=== PATIENT | female | born 1945 | race Hispanic/Latino ===

== ENCOUNTER 2017-03-13 11:49 | Outpatient (CLI) | payer MEDICARE, OTHER, MEDICAID ==
--- NOTE | 2017-03-13 13:45 | RAD ---
CHEST TWO VIEWS: Comparison: 11-07-09 History: Bronchitis. FINDINGS: Normal cardiac silhouette. The pulmonary vessels and hilum are normal. Costophrenic angles are clear . Chronic changes. Stable costophrenic granuloma in the right midlung. No pneumothorax or osseous ab normality. IMPRESSION: No acute cardiopulmonary process. POS: [facility]
== END 2017-03-13 11:50 | disposition home or self-care (01) ==
LOC: RAD-FRANK 11:49
PROVIDERS: ATTEND Nurse Practitioner Family
DX: J40 Bronchitis, not specified as acute or chronic (principal)
CPT/HCPCS: 71020

== ENCOUNTER 2017-06-23 22:18 | Emergency (ER) | payer MEDICARE, OTHER ==
--- NOTE | 2017-06-23 23:26 | RAD ---
LEFT KNEE: 06/23/17 Four views. HISTORY: Left knee pain. Comparison made to left knee films from 09/08/15. Loss of medial joint space. Moderate spurring from the medial joint compartment with spurs seen from the medial femoral condyle and medial tibial condyle. There is fullness in the suprapatellar region s uggesting small effusion. IMPRESSION: Moderate degenerative changes, primarily involving the medial joint space. Suggestion of small joint effusion. POS: [facility]
== END 2017-06-24 00:15 | disposition home or self-care (01) ==
LOC: ERS 22:18
DX: M10.9 Gout, unspecified (principal); E78.5 Hyperlipidemia, unspecified; F17.210 Nicotine dependence, cigarettes, uncomplicated; Z79.899 Other long term (current) drug therapy
CPT/HCPCS: 96372

== ENCOUNTER 2018-03-01 10:20 | Outpatient (CLI) | payer MEDICARE, MEDICAID ==
--- NOTE | 2018-03-01 13:16 | RAD ---
TWO VIEWS OF THE CHEST: COMPARISON: 03/13/17. HISTORY: Cough. FINDINGS: Two views of the chest show normal sized cardiomediastinal silhouette. There is no evidence of consol idation, mass, or pleural effusion. The bones are unremarkable. IMPRESSION: No evidence of acute cardiopulmonary disease. POS: [facility]
== END 2018-03-01 10:21 | disposition home or self-care (01) ==
LOC: RAD-FRANK 10:20
PROVIDERS: ATTEND Nurse Practitioner Family
DX: R05 Cough (principal)
CPT/HCPCS: 71046

== ENCOUNTER 2018-05-07 09:07 | Outpatient (CLI) | payer MEDICARE, MEDICAID ==
--- NOTE | 2018-05-07 11:42 | MRI ---
BRAIN MRI WITH AND WITHOUT CONTRAST: Date: 05/07/18 INDICATION: Brain lesion. There are no prior imaging comparisons available. FINDINGS: The ventricular system is normal in size. There is no acute territorial infarction. An avidly enhanci ng mass is situated about the inferior aspect of the right frontal lobe within the anterior cranial f jose with surrounding vasogenic edema. Mass demonstrates axial dimensions of 2.4 x 2.4 cm and cranioc audal dimension of 2.1 cm. Minimal internal stippled, punctate susceptibility is suggested within the mass, in regions that contain punctate intrinsic T1 hyperintensity. There is a dural based component at its inferior margin which spans 1.2 cm AP diameter with a small dural tail suspected. This favors and extra-axial location. However, a component of motion does limit evaluation of surrounding brain parenchyma, which makes exact site of arisal difficult to confirm. No additional enhancing intra-axia l masses are seen. There is mild chronic ischemic disease. Skull base flow-voids are partially obscured by patient motio n. Pacchionian granulation is seen at the lateral aspect of the left transverse sinus. IMPRESSION: Enhancing mass with punctate susceptibility and intrinsic T1 hyperintensity favoring an extra-axial s ite of emanation from the floor of the right anterior cranial fossa, medially. There is surrounding v asogenic edema. Finding favors a meningioma. As a conservative measure, recommend a short-term follow -up in 4-6 months for continued evaluation. POS: [facility]
--- NOTE | 2018-05-07 11:59 | ULT ---
THYROID ULTRASOUND: HISTORY: Patient with thyroid nodule. TECHNIQUE: Multiple longitudinal and transverse images of the thyroid gland are obtained using a Multi-Hertz cur vilinear transducer. Real-time and color-flow images demonstrate the right thyroid lobe to measures 4.2 x 2.1 x 1.7 cm, while the left lobe measures 5.3 x 1.8 x 1.8 cm. Both thyroid lobes have areas o f heterogeneous density. There is a posterior mid pole right thyroid nodule, which measures 12 x 13 x 10 mm, with ill defined margins. A second left thyroid, more inferior lesion, is seen, measuring a pproximately 18 x 22 x 15 mm. The left thyroid lesion is more inferior. I do recommend a repeat thy roid ultrasound in four to six months, to confirm stability. Neither right or left thyroid lesions h ave ill defined margins or suspicious calcifications. IMPRESSION: Bilateral thyroid nodules noted. Both appear to be solid. Repeat thyroid sonogram in six months is recommended, POS: [facility]
--- NOTE | 2018-05-07 12:08 | CT ---
CONTRAST ENHANCED CT IMAGES OF THE CHEST: History: Trauma, fall, abdominal pain. FINDINGS: Contrast enhanced CT images of the chest obtained. IV contrast was given. Images demonstrates some heterogeneity seen in the thyroid isthmus. No evidence for hemothorax or pneumothorax seen. No evidence of lung parenchymal contusions seen. The mediastinum is unremarkable. Coronary artery calcifications seen. The visualized portions of the liver and spleen are unremarkable. Right adrenal mass again seen, unch anged since the previous comparison abdominal CT from 11-07-09. IMPRESSION: No evidence of osseous fractures or bony lesions seen. POS: [facility]
[2018-05-07] MEDS ORDERED: Gadobenate Dimeglumine 529 MG/1 ML (20ML VIAL) ONE (13:45)
== END 2018-05-07 09:08 | disposition home or self-care (01) ==
LOC: MRI 09:07
PROVIDERS: ATTEND Nurse Practitioner Family
DX: E04.1 Nontoxic single thyroid nodule (principal); R91.1 Solitary pulmonary nodule; G93.9 Disorder of brain, unspecified; E04.2 Nontoxic multinodular goiter
CPT/HCPCS: 70553; 71260; 76536; 82565; A9579

== ENCOUNTER 2019-01-23 20:49 | Emergency (ER) | payer MEDICARE, MEDICAID ==
[2019-01-23 22:29] LABS: Bacteria/HPF Rare-Few HPF (None Seen); Bilirubin Negative (Negative); Blood, Urine Trace (Negative); Clarity Clear (Clear); Glucose, Urine (Dipstick) Normal (Negative); Leukocyte Negative Leu/uL (Negative); Nitrite Negative (Negative); Protein, Urine (Dipstick) Negative (Neg-Trace); RBC/HPF 0-3 HPF (0-3); Squamous Epithelial 0-3 HPF (0-3); Urobilinogen Normal mg/dL (Less than 2); WBC/HPF 0-3 HPF (0-3)
[2019-01-23 22:52] LABS: #Basophils 0.1 thou/uL (0.0-0.2); #Eosinphils 0.2 thou/uL (0.0-0.7); #Lymphocytes 2.4 thou/uL (1.20-3.40); #Monocytes 0.6 thou/uL (0.11-0.59); #Neutrophils 6.7 thou/uL (1.40-6.50); %Basophils 0.8 % (0.0-1.0); %Eosinophils 2.1 % (0.0-10.0); %Lymphocytes 24.2 % (21.0-51.0); %Monocytes 6.1 % (0.0-10.0); %Neutrophils 66.8 % (42.0-75.0); Hemoglobin 13.1 g/dL (12.0-16.0); Mean Corpuscular HGB CONC 32.8 g/dL (32.0-36.0); Mean Corpuscular Hemoglobin 29.7 pg (27.0-31.0); Mean Corpuscular Volume 90.5 fL (78.0-98.0); Mean Platelet Volume 8.4 fL (7.4-10.4); Platelet Count 222 thou/uL (130-400); RBC Distribution Width 12.9 % (11.5-14.5); Red Blood Cell (RBC) Count 4.42 mill/uL (4.20-5.40)
[2019-01-23 23:06] LABS: ALT (SGPT) 14 U/L (8-55); AST (SGOT) 14 U/L (5-34); Albumin 3.9 g/dL (3.4-4.8); Alkaline Phosphatase 93 U/L (40-150); Anion Gap 13 mmol/L (10-20); BUN (Urea Nitrogen) 13 mg/dL (9.8-20.1); Bilirubin, Total 0.3 mg/dL (0.2-1.2); Calc. Creatinine Clearance 0 mL/min (70-130); Calcium 9.5 mg/dL (7.8-10.44); Carbon Dioxide 25 mmol/L (23-31); Chloride 104 mmol/L (98-107); Estimated GFR-MDRD 66; Globulin 2.8 g/dL (2.4-3.5); Glucose 96 mg/dL (83-110); Potassium 4.2 mmol/L (3.5-5.1); Protein, Total 6.7 g/dL (6.0-8.3); Sodium 138 mmol/L (136-145)
== END 2019-01-23 23:25 | disposition home or self-care (01) ==
LOC: ERS 20:49
DX: J02.9 Acute pharyngitis, unspecified (principal); K59.00 Constipation, unspecified; M10.9 Gout, unspecified; J43.9 Emphysema, unspecified; F17.210 Nicotine dependence, cigarettes, uncomplicated; Z79.891 Long term (current) use of opiate analgesic; Z79.899 Other long term (current) drug therapy
CPT/HCPCS: 36415; 80053; 81003; 81015; 85025; 87081; 87430; 99283

== ENCOUNTER 2019-02-07 23:11 | Emergency (ER) | payer MEDICARE, OTHER ==
--- NOTE | 2019-02-08 00:03 | RAD ---
EXAM: Single view of the chest HISTORY: Cough COMPARISON: 06/06/2014 FINDINGS: Single view of the chest shows an enlarged but stable cardiomediastinal silhouette. There i s no evidence of consolidation, mass, or pleural effusion. The bones are unremarkable. IMPRESSION: Cardiomegaly without evidence of acute cardiopulmonary disease
[2019-02-08] MEDS ORDERED: Colchicine 0.6 MG TAB PO SCH (00:30)
[2019-02-08] MEDS ORDERED: Dexamethasone 10 MG/ML VIAL ONE (02:03)
--- NOTE | 2019-02-08 07:55 | ULT ---
PRELIMINARY REPORT/[facility]/EMERGENCY AFTER HOURS PROCEDURE: EXAM: US Duplex Left Lower Extremity Veins, Limited EXAM DATE/TIME: 02/08/2019 12:26 AM CLINICAL HISTORY: 73 years old, female; Other: Lt knee pain TECHNIQUE: Imaging protocol: Real-time Duplex ultrasound of the Left Lower Extremity with 2-D bagley scale, color Doppler flow and spectral waveform analysis with image documentation. Limited exam focused on t he left lower extremity veins. COMPARISON: No relevant prior studies available. FINDINGS: Left deep veins: Unremarkable. The common femoral, femoral, proximal profunda femoral and popliteal veins are patent without thrombus. Normal Doppler waveforms. Normal compressibility and/or augmentation response. Left superficial veins: Unremarkable. Saphenofemoral junction is patent without thrombus. Soft tissues: Moderate-sized joint effusion IMPRESSION: No acute findings. No evidence of deep vein thrombosis. Thank you for allowing us to participate in the care of your patient. Dictated and Authenticated by: Peter Miller MD 02/08/2019 1:06 AM Central Time ([place] & [place]) FINAL REPORT: LEFT LOWER EXTREMITY VENOUS DOPPLER: PROVIDED CLINICAL HISTORY: Pain. COMPARISON: 10/10/2012. FINDINGS/IMPRESSION: Agree with the preliminary interpretation given by CHICHI. Transcribed Date/Time: 02/08/2019 9:15 AM
== END 2019-02-08 02:37 | disposition home or self-care (01) ==
LOC: ERS 23:11
DX: M10.9 Gout, unspecified (principal); M25.562 Pain in left knee; E78.5 Hyperlipidemia, unspecified; F17.210 Nicotine dependence, cigarettes, uncomplicated; M79.662 Pain in left lower leg; Z79.899 Other long term (current) drug therapy
CPT/HCPCS: 71045; 96372; J1100

== ENCOUNTER 2019-06-26 13:39 | Emergency (ER) | payer MEDICARE, MEDICAID ==
[2019-06-26 14:10] LABS: Bacteria/HPF None Seen HPF (None Seen); Bilirubin Negative (Negative); Blood, Urine 1+ (Negative); Clarity Clear (Clear); Glucose, Urine (Dipstick) Normal (Negative); Leukocyte Negative Leu/uL (Negative); Nitrite Negative (Negative); Protein, Urine (Dipstick) 50 mg/dL (Neg-Trace); Squamous Epithelial 0-3 HPF (0-3); Urobilinogen Normal mg/dL (Less than 2); WBC/HPF 0-3 HPF (0-3)
[2019-06-26 14:21] LABS: #Eosinphils 0.1 thou/uL (0.0-0.7); #Lymphocytes 1.9 thou/uL (1.20-3.40); #Monocytes 0.6 thou/uL (0.11-0.59); #Neutrophils 8.7 thou/uL (1.40-6.50); %Basophils 0.4 % (0.0-1.0); %Eosinophils 0.5 % (0.0-10.0); %Lymphocytes 16.9 % (21.0-51.0); %Monocytes 5.2 % (0.0-10.0); Hemoglobin 14.5 g/dL (12.0-16.0); Mean Corpuscular HGB CONC 32.5 g/dL (32.0-36.0); Mean Corpuscular Hemoglobin 29.1 pg (27.0-31.0); Mean Corpuscular Volume 89.6 fL (78.0-98.0); Mean Platelet Volume 8.7 fL (7.4-10.4); Platelet Count 242 thou/uL (130-400); RBC Distribution Width 12.7 % (11.5-14.5); Red Blood Cell (RBC) Count 4.98 mill/uL (4.20-5.40); White Blood Cell (WBC) Count 11.4 thou/uL (4.8-10.8)
[2019-06-26] MEDS ORDERED: Iopamidol-370 76% 500 ML 1 ML ONE (14:35)
[2019-06-26 14:45] LABS: ALT (SGPT) 15 U/L (8-55); AST (SGOT) 16 U/L (5-34); Albumin 4.2 g/dL (3.4-4.8); Alkaline Phosphatase 111 U/L (40-110); Anion Gap 13 mmol/L (10-20); BUN (Urea Nitrogen) 10 mg/dL (9.8-20.1); Bilirubin, Total 0.5 mg/dL (0.2-1.2); Calc. Creatinine Clearance 0 mL/min (70-130); Calcium 9.5 mg/dL (7.8-10.44); Carbon Dioxide 27 mmol/L (23-31); Chloride 103 mmol/L (98-107); Estimated GFR-MDRD 65; Globulin 3.1 g/dL (2.4-3.5); Glucose 126 mg/dL (83-110); Potassium 3.5 mmol/L (3.5-5.1); Protein, Total 7.3 g/dL (6.0-8.3); Sodium 139 mmol/L (136-145)
[2019-06-26] MEDS ORDERED: Ketorolac Tromethamine 30 MG/ML VIAL ONE (15:12)
[2019-06-26] MEDS ORDERED: Morphine 4 MG/ML VIAL ONE (15:12)
--- NOTE | 2019-06-26 18:16 | CT ---
CT ABDOMEN AND PELVIS WITH CONTRAST: Date: 06/26/2019 INDICATION: Right abdominal pain. Comparison made to prior CT abdomen from 2010. FINDINGS: Lung bases clear. Liver, spleen, and pancreas are unremarkable. Stomach and duodenum unremarkable. The gallbladder is mildly distended. There are 2 or 3 radiopaque gallstones seen in the neck of the g allbladder which were not apparent on the prior study. No evidence of pericholecystic edema. There is a right adrenal mass which measures 3.7 x 2.6 cm. This mass is stable from 2010. Left adrenal gland appears normal. Kidneys are unremarkable. There is a cyst involving the inferior pole of the left kidney measuring approximately 2.2 cm. This w as present on the prior study. Tiny cystic lesions in the right kidney are too small to adequately ch aracterize. There is a nonobstructing calculus in the upper collecting structures of the right kidney measuring 4.0 mm on the coronal plane. The ureters are normal caliber. Urinary bladder unremarkable. Small bowel loops appear normal. The appendix is not definitely identified. Both ovaries are seen in the upper pelvis and there are phleboliths within the right ovarian vein whi ch is mildly prominent. Patient appears to be post hysterectomy. IMPRESSION: 1. Cholelithiasis. 2. Right adrenal mass is stable. 3. No evidence of acute process. POS: [facility]
--- NOTE | 2019-06-26 18:21 | ULT ---
EXAM: US Gallbladder RUQ CLINICAL HISTORY: Right upper quadrant pain. Evaluate for cholecystitis. COMPARISON: None. FINDINGS: Pancreas: The head of the pancreas has a normal echotexture. The remainder the pancreas is obscured by bowel gas Liver:Heterogeneous echogenicity which may be due to hepatic steatosis or hepatocellular disease. Carrera ited evaluation for hepatic masses and intrahepatic biliary dilatation. The contour of the hepatic margin is maintained. Right hepatic lobe measures 14.6 cm Gallbladder: Multiple echogenic focus in the lumen of the gallbladder, compatible with a gallstone. G allbladder wall is not thickened. No pericholecystic fluid. Camacho's sign:Negative Portal Vein: Patent. Appropriate directional flow Bile ducts: Common bile duct diameter 0.5 cm Right kidney: No hydronephrosis. Right kidney measures 5.7 x 4.8 x 11.1 cm in length. Hypoechoic focus superior to the right kidney measures 3.5 x 3.6 x 2.9 cm and is felt to correspond t o the mass in the right adrenal gland noted on CT from earlier today. IMPRESSION: 1. Sonographic evidence of cholelithiasis without evidence of cholecystitis.
== END 2019-06-26 19:11 | disposition home or self-care (01) ==
LOC: ERS 13:39
DX: K80.20 Calculus of gallbladder without cholecystitis without obstruction (principal); M19.90 Unspecified osteoarthritis, unspecified site; E78.5 Hyperlipidemia, unspecified; J43.9 Emphysema, unspecified; M10.9 Gout, unspecified; F17.210 Nicotine dependence, cigarettes, uncomplicated; Z79.899 Other long term (current) drug therapy
CPT/HCPCS: 36415; 74177; 76705; 80053; 81003; 81015; 83605; 83690; 84484; 85025; 93005; 96361; 96374; 96375; J1885; J2270; Q9967

== ENCOUNTER 2021-09-28 11:29 | Outpatient (CLI) | payer MEDICARE, OTHER | END 2021-09-28 11:30 | disposition home or self-care (01) | LOC: RAD-FRANK 11:29 | PROVIDERS: ATTEND Nurse Practitioner Family | DX: R06.02 Shortness of breath (principal) | CPT/HCPCS: 71046 ==

== ENCOUNTER 2023-01-26 09:43 | Outpatient (CLI) | payer MEDICARE, OTHER | END 2023-01-26 09:44 | disposition home or self-care (01) | LOC: RAD-FRANK 09:43 | PROVIDERS: ATTEND Nurse Practitioner Family | DX: R10.9 Unspecified abdominal pain (principal); K80.20 Calculus of gallbladder without cholecystitis without obstruction | CPT/HCPCS: 74018 ==

== ENCOUNTER 2023-05-04 20:58 | Emergency (ER) | payer MEDICARE, MEDICAID ==
[2023-05-04 21:43] LABS: #Basophils 0.1 thou/uL (0.0-0.2); #Eosinphils 0.2 thou/uL (0.0-0.7); #Monocytes 0.8 thou/uL (0.11-0.59); #Neutrophils 6.8 thou/uL (1.40-6.50); %Basophils 0.5 % (0.0-1.0); %Eosinophils 1.9 % (0.0-10.0); %Monocytes 7.4 % (0.0-10.0); Hematocrit 39.8 % (36.0-47.0); Hemoglobin 12.6 g/dL (12.0-16.0); Mean Corpuscular HGB CONC 31.7 g/dL (32.0-36.0); Mean Corpuscular Hemoglobin 28.8 pg (27.0-31.0); Mean Corpuscular Volume 91.1 fl (78.0-98.0); Mean Platelet Volume 10.8 fL (7.4-10.4); Platelet Count 269 10x3/uL (130-400); RBC Distribution Width 14.1 % (11.5-14.5); Red Blood Cell (RBC) Count 4.37 mill/uL (4.20-5.40); White Blood Cell (WBC) Count 10.3 10x3/uL (4.8-10.8)
[2023-05-04 22:08] LABS: ALT (SGPT) 11 U/L (8-55); AST (SGOT) 14 U/L (5-34); Albumin 4.3 g/dL (3.4-4.8); Alkaline Phosphatase 99 U/L (40-110); Anion Gap 13 mmol/L (10-20); BUN (Urea Nitrogen) 28 mg/dL (9.8-20.1); Bilirubin, Total 0.3 mg/dL (0.2-1.2); Calc. Creatinine Clearance 0 mL/min (70-130); Calcium 9.6 mg/dL (7.8-10.44); Carbon Dioxide 26 mmol/L (23-31); Chloride 106 mmol/L (98-107); Estimated GFR 51; Globulin 3.1 g/dL (2.4-3.5); Glucose 119 mg/dL (83-110); Lipase 25 U/L (8-78); Magnesium 1.8 mg/dL (1.6-2.6); Potassium 3.7 mmol/L (3.5-5.1); Protein, Total 7.4 g/dL (5.8-8.1); Sodium 141 mmol/L (136-145); Troponin I Less than 0.010 ng/mL (< 0.028)
== END 2023-05-05 00:28 | disposition home or self-care (01) ==
LOC: ERS 20:58
DX: R07.9 Chest pain, unspecified (principal)
CPT/HCPCS: 36415; 71045; 80053; 83690; 83735; 83880; 84484; 85025; 93005